=== PATIENT | female | born 2000 | race Caucasian/White ===

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

== ENCOUNTER 2018-09-28 19:08 | Emergency (ER) | payer BC, OTHER ==
[2018-09-28 19:38] VITALS: BP 128/77
[2018-09-28] MEDS ORDERED: Ondansetron 4 MG/2 ML SDV IVPUSH ONE (19:50)
[2018-09-28] MEDS ORDERED: Sodium Chloride 0.9% 2.5 ML Syringe FLUSH PRN (19:50)
[2018-09-28] MEDS ORDERED: Sodium Chloride 0.9% 1,000 ML IV ONE (19:50)
[2018-09-28] MEDS ORDERED: Sodium Chloride 0.9% 10 ML Syringe FLUSH PRN (19:50)
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
[2018-09-28 21:00] LABS: CHLORIDE,CL 105 mmol/L (98-107); SODIUM,NA 139 mmol/L (136-145)
--- NOTE | 2018-09-28 21:10 | CR ---
INDICATION: Anxiety TECHNIQUE: Chest 1 views COMPARISON: October 30, 2015 FINDINGS: Cardiovascular and mediastinum: Heart size and vasculature are normal in caliber and appearance. Lungs and pleural spaces: Lungs are clear. No sign of infiltrate or mass. No sign of pleural effusion. No pneumothorax. Bones and soft tissues: No significant findings. IMPRESSION: Normal chest. Dictated by Leonardo Álvarez MD @ Sep 28 2018 9:08PM Signed by Dr. Leonardo Álvarez @ Sep 28 2018 9:09PM
== END 2018-09-28 21:18 | disposition home or self-care (01) ==
LOC: MW.ED 19:08
DX: R11.2 Nausea with vomiting, unspecified (principal); Z77.098 Contact with and (suspected) exposure to other hazardous, chiefly nonmedicinal, chemicals; F31.9 Bipolar disorder, unspecified; F41.9 Anxiety disorder, unspecified; F43.10 Post-traumatic stress disorder, unspecified; Z87.891 Personal history of nicotine dependence; Z79.899 Other long term (current) drug therapy
CPT/HCPCS: 36415; 71045; 80053; 81001; 81025; 85025; 96361; 96374; 99283; J2405; J7040

== ENCOUNTER 2019-03-11 07:37 | Emergency (ER) | payer BC, OTHER ==
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
[2019-03-11 07:48] VITALS: BP 107/72; PULSE 81
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
== END 2019-03-11 08:25 | disposition home or self-care (01) ==
LOC: MW.ED 07:37
DX: S90.511A Abrasion, right ankle, initial encounter (principal); W22.8XXA Striking against or struck by other objects, initial encounter
CPT/HCPCS: 73610-26-RT; 73610-RT; 99282; 99283-25

== ENCOUNTER 2019-04-06 07:45 | Emergency (ER) | payer MEDICAID ==
[2019-04-06] MEDS ORDERED: Sodium Chloride 0.9% 1,000 ML IV ONE (08:12)
[2019-04-06] MEDS ORDERED: Ondansetron 4 MG/2 ML SDV IVPUSH ONE (08:12)
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
[2019-04-06 09:00] LABS: BLOOD UREA NITROGEN,BUN 11 mg/dL (7.0-18.0); CARBON DIOXIDE,CO2 28.6 mmol/L (21.0-32.0); CHLORIDE,CL 105 mmol/L (98-107); GLUCOSE RANDOM 89 mg/dL (74-106); POTASSIUM,K 3.6 mmol/L (3.5-5.1); SODIUM,NA 142 mmol/L (136-145)
[2019-04-06 09:11] VITALS: BP 120/79; PULSE 79
== END 2019-04-06 09:11 | disposition home or self-care (01) ==
LOC: MW.ED 07:45
DX: R11.2 Nausea with vomiting, unspecified (principal); T42.6X5A Adverse effect of other antiepileptic and sedative-hypnotic drugs, initial encounter; F32.9 Major depressive disorder, single episode, unspecified; R31.9 Hematuria, unspecified; Z91.14 Patient's other noncompliance with medication regimen; Z91.048 Other nonmedicinal substance allergy status
CPT/HCPCS: 36415; 80053; 81001; 81025; 85025; 96361; 96374; 99284; J2405; J7030

== ENCOUNTER 2019-06-11 20:25 | Emergency (ER) | payer BC, MEDICAID ==
[2019-06-11 21:58] VITALS: BP 129/94; PULSE 112
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
== END 2019-06-11 22:19 | disposition home or self-care (01) ==
LOC: MW.ED 20:25
DX: R40.1 Stupor (principal); Z91.09 Other allergy status, other than to drugs and biological substances; Z79.899 Other long term (current) drug therapy
CPT/HCPCS: 93005; 99284-25

== ENCOUNTER 2022-09-22 22:19 | Emergency (ER) | payer BC, MEDICAID ==
[2022-09-23 02:16] VITALS: BP 120/74; PULSE 91
== END 2022-09-22 23:30 | disposition home or self-care (01) ==
LOC: MW.ED 22:19
DX: R45.851 Suicidal ideations (principal); Z91.048 Other nonmedicinal substance allergy status
CPT/HCPCS: 99284

== ENCOUNTER 2022-11-01 08:24 | Emergency (ER) | payer BC ==
[2022-11-01] MEDS ORDERED: Sodium Chloride 0.9% 2.5 ML Syringe FLUSH PRN (08:51)
[2022-11-01] MEDS ORDERED: Sodium Chloride 0.9% 10 ML Syringe FLUSH PRN (08:51)
[2022-11-01 09:09] LABS: BASOPHILS PERCENT AUTO 0.4 % (0.0-1.5); EOSINOPHILS ABSOLUTE AUTO 0.1 K/uL (0.0-0.7); EOSINOPHILS PERCENT AUTO 0.5 % (0.0-7.0); HEMATOCRIT 44.1 % (36.0-46.0); HEMOGLOBIN 14.5 g/dL (12.0-16.0); LYMPHOCYTES ABSOLUTE AUTO 2.2 K/uL (0.6-2.4); LYMPHOCYTES PERCENT AUTO 19.4 % (16.0-40.0); MEAN CORPUSCULAR HGB CONC 32.9 g/dL (31.0-37.0); MEAN CORPUSCULAR VOLUME 85.1 fL (80.0-98.0); NEUTROPHILS ABSOLUTE AUTO 7.8 K/uL (1.4-5.7); NEUTROPHILS PERCENT AUTO 70.7 % (48.0-80.0); PLATELET COUNT,PLT 445 K/uL (150-400); RED BLOOD CELL COUNT 5.18 M/uL (4.30-5.90); WHITE BLOOD CELL COUNT,WBC 11.06 K/uL (4.0-11.0)
[2022-11-01 09:38] LABS: ALANINE AMINOTRANSFERASE,ALT 13 IU/L (14-63); ALBUMIN 3.5 g/dL (3.4-5.0); ALKALINE PHOSPHATASE 75 U/L (46-116); ASPARTATE AMNIOTRANSFERASE,AST 15 IU/L (15-37); BILIRUBIN TOTAL 0.5 mg/dL (0.2-1.0); BLOOD UREA NITROGEN,BUN 11 mg/dL (7.0-18.0); CALCIUM 8.9 mg/dL (8.5-10.1); CARBON DIOXIDE,CO2 25.5 mmol/L (21.0-32.0); CHLORIDE,CL 103 mmol/L (98-107); CREATININE 0.7 mg/dL (0.6-1.0); EST CRCL DRUG DOSING (CG) 120.51 mL/min; GLUCOSE RANDOM 126 mg/dL (74-106); LIPASE 85 U/L (73-393); POTASSIUM,K 3.4 mmol/L (3.5-5.1); PROTEIN TOTAL,TP 6.9 g/dL (6.4-8.2); SODIUM,NA 138 mmol/L (136-145)
[2022-11-01 09:43] LABS: ESTIMATED GFR 124 mL/min (>60)
[2022-11-01 10:19] VITALS: BP 128/81; PULSE 87
== END 2022-11-01 10:18 | disposition home or self-care (01) ==
LOC: MW.ED 08:24
DX: R07.89 Other chest pain (principal); Z79.899 Other long term (current) drug therapy; Z91.048 Other nonmedicinal substance allergy status
CPT/HCPCS: 36415; 71045; 71045-26; 80053; 83690; 84484; 84703; 85025; 85379; 93005; 93010; 99283; 99285

== ENCOUNTER 2022-11-11 06:35 | Emergency (ER) | payer BC ==
[2022-11-11] MEDS ORDERED: Lactated Ringers 1,000 ML IV SCH ×2 (06:45→09:45)
[2022-11-11] MEDS ORDERED: Ondansetron 4 MG/2 ML SDV IVPUSH ONE (06:45)
[2022-11-11 07:36] LABS: BASOPHILS PERCENT AUTO 0.4 % (0.0-1.5); EOSINOPHILS ABSOLUTE AUTO 0.2 K/uL (0.0-0.7); EOSINOPHILS PERCENT AUTO 2.9 % (0.0-7.0); HEMOGLOBIN 13.8 g/dL (12.0-16.0); LYMPHOCYTES ABSOLUTE AUTO 2.5 K/uL (0.6-2.4); LYMPHOCYTES PERCENT AUTO 30.7 % (16.0-40.0); MEAN CORPUSCULAR HEMOGLOBIN 27.5 pg (27.0-32.0); MEAN CORPUSCULAR HGB CONC 32.1 g/dL (31.0-37.0); MEAN CORPUSCULAR VOLUME 85.8 fL (80.0-98.0); MONOCYTES ABSOLUTE AUTO 0.8 K/uL (0.0-0.8); MONOCYTES PERCENT AUTO 9.7 % (0.0-15.0); NEUTROPHILS ABSOLUTE AUTO 4.7 K/uL (1.4-5.7); NEUTROPHILS PERCENT AUTO 56.3 % (48.0-80.0); NRBC ABSOLUTE 0 K/uL; PLATELET COUNT,PLT 364 K/uL (150-400); RED BLOOD CELL COUNT 5.01 M/uL (4.30-5.90); WHITE BLOOD CELL COUNT,WBC 8.27 K/uL (4.0-11.0)
[2022-11-11 07:39] LABS: APPEARANCE,URINE CLEAR; BILIRUBIN,URINE NEGATIVE (NEGATIVE); COLOR,URINE YELLOW; GLUCOSE,URINE NEGATIVE (NEGATIVE); KETONES,URINE NEGATIVE (NEGATIVE); LEUKOCYTE ESTERASE,URINE NEGATIVE (NEGATIVE); NITRITE,URINE NEGATIVE (NEGATIVE); OCCULT BLOOD,URINE SMALL (NEGATIVE); PH,URINE 6.5 (5.0-8.0); PROTEIN,URINE NEGATIVE (NEGATIVE); UROBILINOGEN,URINE 0.2 EU/dL (<2.0)
[2022-11-11 07:46] LABS: AMPHETAMINES SCREEN, URINE NEGATIVE (CUTOFF=500); BARBITURATE SCREEN,URINE NEGATIVE (CUTOFF=200); BENZODIAZEPINES SCREEN,URINE NEGATIVE (CUTOFF=150); BUPRENORPHINE SCREEN,URINE NEGATIVE (CUTOFF=10); METHADONE SCREEN, URINE NEGATIVE (CUTOFF=200); METHAMPHETAMINES SCREEN, URINE NEGATIVE (CUTOFF=500); OXYCODONE SCREEN,URINE PRESUMPTIVE POSITIVE (CUT0FF=100); PCP SCREEN,URINE NEGATIVE (CUTOFF=25); PROPOXYPHENE SCREEN,URINE NEGATIVE (CUTOFF=300); THC SCREEN,URINE 20 NG/ML NEGATIVE (CUTOFF=50)
[2022-11-11 07:59] LABS: INR 0.98 (0.86-1.11)
[2022-11-11 08:06] LABS: EPITHELIAL CELLS,URINE MODERATE (NONE-FEW); RBC,URINE 0-2 (0-2/HPF)
[2022-11-11 08:07] LABS: BACTERIA,URINE RARE (NEGATIVE)
[2022-11-11 08:14] LABS: A/G RATIO 1.1 (0.9-1.6); ACETAMINOPHEN 5.3 ug/mL; ALBUMIN 3.6 g/dL (3.4-5.0); BILIRUBIN TOTAL 0.2 mg/dL (0.2-1.0); CALCIUM 8.4 mg/dL (8.5-10.1); CARBON DIOXIDE,CO2 26.7 mmol/L (21.0-32.0); CREATININE 0.7 mg/dL (0.6-1.0); EST CRCL DRUG DOSING (CG) 119.8 mL/min; PROTEIN TOTAL,TP 6.9 g/dL (6.4-8.2); SALICYLATE 0.8 mg/dL (0.0-20.0); TSH ULTRASENSITIVE 2.77 uIU/mL (0.36-3.74)
[2022-11-11] MEDS ORDERED: Meclizine 25 MG Tab PO ONE (09:40)
[2022-11-11] MEDS ORDERED: LORazepam 2 MG/ML SDV IVPUSH ONE (11:31)
[2022-11-11 14:59] VITALS: BP 103/61; PULSE 87
== END 2022-11-11 13:13 | disposition home or self-care (01) ==
LOC: MW.ED 06:35
DX: T40.2X1A Poisoning by other opioids, accidental (unintentional), initial encounter (principal); R11.2 Nausea with vomiting, unspecified; R42 Dizziness and giddiness; Z91.048 Other nonmedicinal substance allergy status; Z79.899 Other long term (current) drug therapy
CPT/HCPCS: 36415; 70551; 80053; 80143; 80179; 80305; 80307; 81001; 83690; 83735; 84443; 84703; 85025; 85610; 93005; 96361; 96374; 96375; 99284; A9270; J2060; J2405; J7120; 93010

== ENCOUNTER 2022-11-13 00:20 | Emergency (ER) | payer BC ==
[2022-11-13 00:49] LABS: BASOPHILS ABSOLUTE AUTO 0.1 K/uL (0.0-0.1); BASOPHILS PERCENT AUTO 0.5 % (0.0-1.5); EOSINOPHILS ABSOLUTE AUTO 0.4 K/uL (0.0-0.7); HEMATOCRIT 41.9 % (36.0-46.0); HEMOGLOBIN 13.7 g/dL (12.0-16.0); LYMPHOCYTES ABSOLUTE AUTO 3.4 K/uL (0.6-2.4); LYMPHOCYTES PERCENT AUTO 32.8 % (16.0-40.0); MEAN CORPUSCULAR HEMOGLOBIN 27.6 pg (27.0-32.0); MEAN CORPUSCULAR HGB CONC 32.7 g/dL (31.0-37.0); MEAN CORPUSCULAR VOLUME 84.5 fL (80.0-98.0); MONOCYTES ABSOLUTE AUTO 0.8 K/uL (0.0-0.8); MONOCYTES PERCENT AUTO 7.4 % (0.0-15.0); NEUTROPHILS ABSOLUTE AUTO 5.7 K/uL (1.4-5.7); NEUTROPHILS PERCENT AUTO 55.3 % (48.0-80.0); NRBC ABSOLUTE 0 K/uL; PLATELET COUNT,PLT 371 K/uL (150-400); RED BLOOD CELL COUNT 4.96 M/uL (4.30-5.90); WHITE BLOOD CELL COUNT,WBC 10.29 K/uL (4.0-11.0)
[2022-11-13] MEDS ORDERED: Midazolam 5 MG/ML SDV IVPUSH STA (01:00)
[2022-11-13 01:12] LABS: INR 0.97 (0.86-1.11)
[2022-11-13 01:18] LABS: A/G RATIO 1.1 (0.9-1.6); ACETAMINOPHEN <2.0 ug/mL; ALANINE AMINOTRANSFERASE,ALT 18 IU/L (14-63); ALBUMIN 3.7 g/dL (3.4-5.0); ALKALINE PHOSPHATASE 60 U/L (46-116); ASPARTATE AMNIOTRANSFERASE,AST 20 IU/L (15-37); BILIRUBIN TOTAL 0.2 mg/dL (0.2-1.0); BLOOD UREA NITROGEN,BUN 8 mg/dL (7.0-18.0); CALCIUM 8.7 mg/dL (8.5-10.1); CARBON DIOXIDE,CO2 24.1 mmol/L (21.0-32.0); CHLORIDE,CL 107 mmol/L (98-107); CREATININE 0.6 mg/dL (0.6-1.0); ETHANOL BLOOD MEDICAL 196 mg/dL; GLUCOSE RANDOM 80 mg/dL (74-106); LIPASE 76 U/L (73-393); MAGNESIUM 2.1 mg/dL (1.8-2.4); POTASSIUM,K 4.1 mmol/L (3.5-5.1); PROTEIN TOTAL,TP 7.1 g/dL (6.4-8.2); SALICYLATE 1.1 mg/dL (0.0-20.0); SODIUM,NA 143 mmol/L (136-145); TSH ULTRASENSITIVE 1.08 uIU/mL (0.36-3.74)
[2022-11-13] MEDS ORDERED: Sodium Chloride 0.9% 1,000 ML IV ONE (01:19)
[2022-11-13 01:31] LABS: ESTIMATED GFR 128 mL/min (>60)
[2022-11-13 01:43] LABS: AMPHETAMINES SCREEN, URINE NEGATIVE (CUTOFF=500); BARBITURATE SCREEN,URINE NEGATIVE (CUTOFF=200); BENZODIAZEPINES SCREEN,URINE NEGATIVE (CUTOFF=150); BUPRENORPHINE SCREEN,URINE NEGATIVE (CUTOFF=10); METHADONE SCREEN, URINE NEGATIVE (CUTOFF=200); METHAMPHETAMINES SCREEN, URINE NEGATIVE (CUTOFF=500); OXYCODONE SCREEN,URINE PRESUMPTIVE POSITIVE (CUT0FF=100); PCP SCREEN,URINE NEGATIVE (CUTOFF=25); PROPOXYPHENE SCREEN,URINE NEGATIVE (CUTOFF=300); THC SCREEN,URINE 20 NG/ML NEGATIVE (CUTOFF=50)
[2022-11-13 01:44] LABS: APPEARANCE,URINE CLEAR; BILIRUBIN,URINE NEGATIVE (NEGATIVE); COLOR,URINE YELLOW; GLUCOSE,URINE NEGATIVE (NEGATIVE); KETONES,URINE NEGATIVE (NEGATIVE); LEUKOCYTE ESTERASE,URINE NEGATIVE (NEGATIVE); NITRITE,URINE NEGATIVE (NEGATIVE); OCCULT BLOOD,URINE NEGATIVE (NEGATIVE); PH,URINE 6.5 (5.0-8.0); PROTEIN,URINE NEGATIVE (NEGATIVE); UROBILINOGEN,URINE 0.2 EU/dL (<2.0)
[2022-11-13] MEDS ORDERED: Ketorolac 30 MG/ML SDV IVPUSH ONE (06:23)
[2022-11-13] MEDS ORDERED: Ondansetron 4 MG Tab.DIS PO ONE (12:13)
[2022-11-14] MEDS ORDERED: Ibuprofen 600 MG Tab PO ONE (00:26)
[2022-11-14 06:28] VITALS: BP 132/74; PULSE 75
== END 2022-11-14 06:01 | disposition left against medical advice (07) ==
LOC: MW.ED 00:20
DX: T40.2X2A Poisoning by other opioids, intentional self-harm, initial encounter (principal); F19.10 Other psychoactive substance abuse, uncomplicated; Z91.048 Other nonmedicinal substance allergy status; Z91.09 Other allergy status, other than to drugs and biological substances; Z20.822 Contact with and (suspected) exposure to COVID-19
CPT/HCPCS: 36415; 80053; 80143; 80179; 80305; 80307; 81003; 83690; 83735; 84443; 84703; 85025; 85610; 87635; 93005; 96374; 96375; 99285; A9270; J1885; J2250; J7030; 93010; U0002

== ENCOUNTER 2022-12-02 06:53 | Emergency (ER) | payer BC ==
[2022-12-02] MEDS ORDERED: Ondansetron 4 MG/2 ML SDV IVPUSH ONE (07:18)
[2022-12-02] MEDS ORDERED: Lactated Ringers 1,000 ML IV SCH (07:30)
[2022-12-02 07:42] LABS: BASOPHILS PERCENT AUTO 0.5 % (0.0-1.5); EOSINOPHILS ABSOLUTE AUTO 0.2 K/uL (0.0-0.7); EOSINOPHILS PERCENT AUTO 2.2 % (0.0-7.0); HEMATOCRIT 41.1 % (36.0-46.0); HEMOGLOBIN 13.3 g/dL (12.0-16.0); LYMPHOCYTES ABSOLUTE AUTO 1.6 K/uL (0.6-2.4); LYMPHOCYTES PERCENT AUTO 22.3 % (16.0-40.0); MEAN CORPUSCULAR HEMOGLOBIN 27.4 pg (27.0-32.0); MEAN CORPUSCULAR HGB CONC 32.4 g/dL (31.0-37.0); MEAN CORPUSCULAR VOLUME 84.6 fL (80.0-98.0); MONOCYTES ABSOLUTE AUTO 0.7 K/uL (0.0-0.8); MONOCYTES PERCENT AUTO 9.4 % (0.0-15.0); NEUTROPHILS ABSOLUTE AUTO 4.8 K/uL (1.4-5.7); NEUTROPHILS PERCENT AUTO 65.6 % (48.0-80.0); NRBC ABSOLUTE 0 K/uL; PLATELET COUNT,PLT 392 K/uL (150-400); RED BLOOD CELL COUNT 4.86 M/uL (4.30-5.90); WHITE BLOOD CELL COUNT,WBC 7.35 K/uL (4.0-11.0)
[2022-12-02 08:12] LABS: APPEARANCE,URINE CLEAR; BILIRUBIN,URINE NEGATIVE (NEGATIVE); COLOR,URINE YELLOW; GLUCOSE,URINE NEGATIVE (NEGATIVE); KETONES,URINE NEGATIVE (NEGATIVE); LEUKOCYTE ESTERASE,URINE NEGATIVE (NEGATIVE); NITRITE,URINE NEGATIVE (NEGATIVE); OCCULT BLOOD,URINE NEGATIVE (NEGATIVE); PROTEIN,URINE NEGATIVE (NEGATIVE); UROBILINOGEN,URINE 0.2 EU/dL (<2.0)
[2022-12-02 08:48] LABS: A/G RATIO 1.2 (0.9-1.6); ALBUMIN 3.8 g/dL (3.4-5.0); BILIRUBIN TOTAL 0.2 mg/dL (0.2-1.0); CALCIUM 8.7 mg/dL (8.5-10.1); CARBON DIOXIDE,CO2 25.2 mmol/L (21.0-32.0); CREATININE 0.6 mg/dL (0.6-1.0); EST CRCL DRUG DOSING (CG) 139.76 mL/min; POTASSIUM,K 3.9 mmol/L (3.5-5.1); PROTEIN TOTAL,TP 7.1 g/dL (6.4-8.2)
[2022-12-02 09:28] VITALS: BP 97/53; PULSE 78
== END 2022-12-02 09:27 | disposition home or self-care (01) ==
LOC: MW.ED 06:53
DX: O21.9 Vomiting of pregnancy, unspecified (principal); Z91.048 Other nonmedicinal substance allergy status; Z3A.01 Less than 8 weeks gestation of pregnancy
CPT/HCPCS: 36415; 80053; 81003; 83690; 85025; 96361; 96374; 99284; J2405; J7120

== ENCOUNTER 2022-12-07 23:02 | Emergency (ER) | payer BC ==
[2022-12-07] MEDS ORDERED: Sodium Chloride 0.9% 1,000 ML IV ONE (23:51)
[2022-12-08 00:21] LABS: BASOPHILS PERCENT AUTO 0.2 % (0.0-1.5); EOSINOPHILS ABSOLUTE AUTO 0.2 K/uL (0.0-0.7); EOSINOPHILS PERCENT AUTO 1.7 % (0.0-7.0); HEMATOCRIT 37.9 % (36.0-46.0); HEMOGLOBIN 12.4 g/dL (12.0-16.0); LYMPHOCYTES ABSOLUTE AUTO 2.5 K/uL (0.6-2.4); LYMPHOCYTES PERCENT AUTO 18.9 % (16.0-40.0); MEAN CORPUSCULAR HEMOGLOBIN 27.6 pg (27.0-32.0); MEAN CORPUSCULAR HGB CONC 32.7 g/dL (31.0-37.0); MEAN CORPUSCULAR VOLUME 84.4 fL (80.0-98.0); MONOCYTES ABSOLUTE AUTO 0.9 K/uL (0.0-0.8); MONOCYTES PERCENT AUTO 6.7 % (0.0-15.0); NEUTROPHILS ABSOLUTE AUTO 9.6 K/uL (1.4-5.7); NEUTROPHILS PERCENT AUTO 72.5 % (48.0-80.0); NRBC ABSOLUTE 0 K/uL; PLATELET COUNT,PLT 363 K/uL (150-400); RED BLOOD CELL COUNT 4.49 M/uL (4.30-5.90); WHITE BLOOD CELL COUNT,WBC 13.27 K/uL (4.0-11.0)
[2022-12-08 00:38] LABS: HEMOGLOBIN A1C 5.3 %
[2022-12-08 01:05] LABS: A/G RATIO 1.1 (0.9-1.6); ALBUMIN 3.5 g/dL (3.4-5.0); BILIRUBIN TOTAL 0.2 mg/dL (0.2-1.0); CALCIUM 8.5 mg/dL (8.5-10.1); CARBON DIOXIDE,CO2 24.7 mmol/L (21.0-32.0); CREATININE 0.5 mg/dL (0.6-1.0); EST CRCL DRUG DOSING (CG) 166.47 mL/min; MAGNESIUM 1.8 mg/dL (1.8-2.4); POTASSIUM,K 3.5 mmol/L (3.5-5.1); PROTEIN TOTAL,TP 6.7 g/dL (6.4-8.2)
[2022-12-08 02:16] VITALS: BP 110/78; PULSE 78
== END 2022-12-08 01:20 | disposition home or self-care (01) ==
LOC: MW.ED 23:02
DX: O24.911 Unspecified diabetes mellitus in pregnancy, first trimester (principal); E11.649 Type 2 diabetes mellitus with hypoglycemia without coma; O99.891 Other specified diseases and conditions complicating pregnancy; R00.2 Palpitations; Z91.048 Other nonmedicinal substance allergy status; Z3A.01 Less than 8 weeks gestation of pregnancy
CPT/HCPCS: 36415; 80053; 82947; 83036; 83735; 84702; 85025; 93005; 93010; 99283; 99285

== ENCOUNTER 2022-12-26 20:26 | Emergency (ER) | payer BC ==
[2022-12-26 22:10] LABS: BASOPHILS PERCENT AUTO 0.4 % (0.0-1.5); EOSINOPHILS ABSOLUTE AUTO 0.3 K/uL (0.0-0.7); EOSINOPHILS PERCENT AUTO 2.7 % (0.0-7.0); HEMATOCRIT 40.8 % (36.0-46.0); HEMOGLOBIN 13.6 g/dL (12.0-16.0); LYMPHOCYTES ABSOLUTE AUTO 2.3 K/uL (0.6-2.4); LYMPHOCYTES PERCENT AUTO 23.6 % (16.0-40.0); MEAN CORPUSCULAR HEMOGLOBIN 28.1 pg (27.0-32.0); MEAN CORPUSCULAR HGB CONC 33.3 g/dL (31.0-37.0); MEAN CORPUSCULAR VOLUME 84.3 fL (80.0-98.0); MONOCYTES PERCENT AUTO 9.9 % (0.0-15.0); NEUTROPHILS ABSOLUTE AUTO 6.2 K/uL (1.4-5.7); NEUTROPHILS PERCENT AUTO 63.4 % (48.0-80.0); NRBC ABSOLUTE 0 K/uL; PLATELET COUNT,PLT 407 K/uL (150-400); RED BLOOD CELL COUNT 4.84 M/uL (4.30-5.90); WHITE BLOOD CELL COUNT,WBC 9.82 K/uL (4.0-11.0)
[2022-12-26 22:54] LABS: A/G RATIO 1.1 (0.9-1.6); ALBUMIN 3.8 g/dL (3.4-5.0); BILIRUBIN TOTAL 0.3 mg/dL (0.2-1.0); CALCIUM 9.3 mg/dL (8.5-10.1); CARBON DIOXIDE,CO2 25.6 mmol/L (21.0-32.0); CREATININE 0.6 mg/dL (0.6-1.0); EST CRCL DRUG DOSING (CG) 140.37 mL/min; POTASSIUM,K 4.3 mmol/L (3.5-5.1); PROTEIN TOTAL,TP 7.4 g/dL (6.4-8.2)
[2022-12-26 23:17] LABS: BILIRUBIN,URINE NEGATIVE (NEGATIVE); COLOR,URINE YELLOW; GLUCOSE,URINE NEGATIVE (NEGATIVE); KETONES,URINE NEGATIVE (NEGATIVE); LEUKOCYTE ESTERASE,URINE NEGATIVE (NEGATIVE); NITRITE,URINE NEGATIVE (NEGATIVE); OCCULT BLOOD,URINE NEGATIVE (NEGATIVE); PROTEIN,URINE NEGATIVE (NEGATIVE)
[2022-12-26 23:18] LABS: APPEARANCE,URINE SLT CLOUDY; BACTERIA,URINE 2+ (NEGATIVE); EPITHELIAL CELLS,URINE FEW (NONE-FEW); MUCUS,URINE LIGHT (NONE-MOD); RBC,URINE 0-3 (0-2/HPF)
[2022-12-26 23:50] VITALS: BP 110/70; PULSE 78
== END 2022-12-26 23:48 | disposition home or self-care (01) ==
LOC: MW.ED 20:26
DX: O02.1 Missed abortion (principal); Z91.09 Other allergy status, other than to drugs and biological substances; Z91.048 Other nonmedicinal substance allergy status
CPT/HCPCS: 36415; 76817; 76817-26; 80053; 81001; 84702; 85025; 86900; 86901; 99283; 99284

== ENCOUNTER 2023-01-03 22:15 | Emergency (ER) | payer OTHER, BC ==
[2023-01-03 22:47] LABS: APPEARANCE,URINE SLT CLOUDY; BILIRUBIN,URINE NEGATIVE (NEGATIVE); COLOR,URINE YELLOW; GLUCOSE,URINE NEGATIVE (NEGATIVE); KETONES,URINE NEGATIVE (NEGATIVE); LEUKOCYTE ESTERASE,URINE NEGATIVE (NEGATIVE); NITRITE,URINE NEGATIVE (NEGATIVE); OCCULT BLOOD,URINE NEGATIVE (NEGATIVE); PH,URINE 7.5 (5.0-8.0); PROTEIN,URINE NEGATIVE (NEGATIVE)
[2023-01-03 23:36] VITALS: BP 120/87; PULSE 91
== END 2023-01-03 23:56 | disposition home or self-care (01) ==
LOC: MW.ED 22:15
DX: S06.0XAA Concussion with loss of consciousness status unknown, initial encounter (principal); Z91.048 Other nonmedicinal substance allergy status; Z91.09 Other allergy status, other than to drugs and biological substances; V89.2XXA Person injured in unspecified motor-vehicle accident, traffic, initial encounter; Y92.410 Unspecified street and highway as the place of occurrence of the external cause
CPT/HCPCS: 70450; 70450-26; 81003; 81025; 99283; 99284

== ENCOUNTER 2023-01-08 21:20 | Emergency (ER) | payer BC ==
[2023-01-08 21:41] VITALS: BP 136/95; PULSE 85
[2023-01-08 21:45] LABS: BASOPHILS PERCENT AUTO 0.3 % (0.0-1.5); EOSINOPHILS ABSOLUTE AUTO 0.4 K/uL (0.0-0.7); EOSINOPHILS PERCENT AUTO 5.1 % (0.0-7.0); HEMATOCRIT 38.4 % (36.0-46.0); HEMOGLOBIN 12.7 g/dL (12.0-16.0); LYMPHOCYTES ABSOLUTE AUTO 1.9 K/uL (0.6-2.4); LYMPHOCYTES PERCENT AUTO 27.1 % (16.0-40.0); MEAN CORPUSCULAR HEMOGLOBIN 27.8 pg (27.0-32.0); MEAN CORPUSCULAR HGB CONC 33.1 g/dL (31.0-37.0); MONOCYTES ABSOLUTE AUTO 0.9 K/uL (0.0-0.8); MONOCYTES PERCENT AUTO 12.4 % (0.0-15.0); NEUTROPHILS ABSOLUTE AUTO 3.9 K/uL (1.4-5.7); NEUTROPHILS PERCENT AUTO 55.1 % (48.0-80.0); NRBC ABSOLUTE 0 K/uL; PLATELET COUNT,PLT 374 K/uL (150-400); RED BLOOD CELL COUNT 4.57 M/uL (4.30-5.90); WHITE BLOOD CELL COUNT,WBC 7.11 K/uL (4.0-11.0)
[2023-01-08 22:01] LABS: APPEARANCE,URINE CLEAR; BILIRUBIN,URINE NEGATIVE (NEGATIVE); COLOR,URINE YELLOW; GLUCOSE,URINE NEGATIVE (NEGATIVE); KETONES,URINE NEGATIVE (NEGATIVE); LEUKOCYTE ESTERASE,URINE NEGATIVE (NEGATIVE); NITRITE,URINE NEGATIVE (NEGATIVE); OCCULT BLOOD,URINE NEGATIVE (NEGATIVE); PROTEIN,URINE NEGATIVE (NEGATIVE); UROBILINOGEN,URINE 0.2 EU/dL (<2.0)
[2023-01-08 22:40] LABS: A/G RATIO 1.3 (0.9-1.6); ALANINE AMINOTRANSFERASE,ALT 14 IU/L (14-63); ALKALINE PHOSPHATASE 47 U/L (46-116); ASPARTATE AMNIOTRANSFERASE,AST 14 IU/L (15-37); BILIRUBIN TOTAL 0.3 mg/dL (0.2-1.0); BLOOD UREA NITROGEN,BUN 7 mg/dL (7.0-18.0); CALCIUM 8.8 mg/dL (8.5-10.1); CARBON DIOXIDE,CO2 26.8 mmol/L (21.0-32.0); CHLORIDE,CL 101 mmol/L (98-107); CREATININE 0.6 mg/dL (0.6-1.0); ESTIMATED GFR 128 mL/min (>60); GLUCOSE RANDOM 81 mg/dL (74-106); POTASSIUM,K 3.7 mmol/L (3.5-5.1); PROTEIN TOTAL,TP 7.2 g/dL (6.4-8.2); SODIUM,NA 137 mmol/L (136-145)
== END 2023-01-08 23:05 | disposition home or self-care (01) ==
LOC: MW.ED 21:20
DX: O03.9 Complete or unspecified spontaneous abortion without complication (principal); Z91.048 Other nonmedicinal substance allergy status
CPT/HCPCS: 36415; 80053; 81003; 84702; 85025; 99283; 99284

== ENCOUNTER 2023-01-18 20:11 | Emergency (ER) | payer BC ==
[2023-01-18] MEDS ORDERED: Sodium Chloride 0.9% 1,000 ML IV ONE (20:26)
[2023-01-18 20:42] LABS: BASOPHILS PERCENT AUTO 0.2 % (0.0-1.5); EOSINOPHILS ABSOLUTE AUTO 0.3 K/uL (0.0-0.7); HEMATOCRIT 36.8 % (36.0-46.0); HEMOGLOBIN 12.4 g/dL (12.0-16.0); LYMPHOCYTES ABSOLUTE AUTO 2.8 K/uL (0.6-2.4); LYMPHOCYTES PERCENT AUTO 26.6 % (16.0-40.0); MEAN CORPUSCULAR HEMOGLOBIN 28.1 pg (27.0-32.0); MEAN CORPUSCULAR HGB CONC 33.7 g/dL (31.0-37.0); MEAN CORPUSCULAR VOLUME 83.3 fL (80.0-98.0); MONOCYTES ABSOLUTE AUTO 0.9 K/uL (0.0-0.8); MONOCYTES PERCENT AUTO 8.3 % (0.0-15.0); NEUTROPHILS ABSOLUTE AUTO 6.4 K/uL (1.4-5.7); NEUTROPHILS PERCENT AUTO 61.9 % (48.0-80.0); NRBC ABSOLUTE 0 K/uL; PLATELET COUNT,PLT 388 K/uL (150-400); RED BLOOD CELL COUNT 4.42 M/uL (4.30-5.90); WHITE BLOOD CELL COUNT,WBC 10.36 K/uL (4.0-11.0)
[2023-01-18 21:16] LABS: ALBUMIN 3.7 g/dL (3.4-5.0); BILIRUBIN TOTAL 0.2 mg/dL (0.2-1.0); CALCIUM 8.8 mg/dL (8.5-10.1); CARBON DIOXIDE,CO2 25.8 mmol/L (21.0-32.0); CREATININE 0.6 mg/dL (0.6-1.0); EST CRCL DRUG DOSING (CG) 134.59 mL/min; POTASSIUM,K 3.3 mmol/L (3.5-5.1); PROTEIN TOTAL,TP 7.4 g/dL (6.4-8.2)
[2023-01-18 21:34] LABS: LACTIC ACID 0.8 mmol/L (0.4-2.0)
[2023-01-18 21:48] LABS: APPEARANCE,URINE CLEAR; BILIRUBIN,URINE NEGATIVE (NEGATIVE); COLOR,URINE YELLOW; GLUCOSE,URINE NEGATIVE (NEGATIVE); KETONES,URINE NEGATIVE (NEGATIVE); LEUKOCYTE ESTERASE,URINE NEGATIVE (NEGATIVE); NITRITE,URINE NEGATIVE (NEGATIVE); OCCULT BLOOD,URINE LARGE (NEGATIVE); PROTEIN,URINE NEGATIVE (NEGATIVE); UROBILINOGEN,URINE 0.2 EU/dL (<2.0)
[2023-01-18 22:20] LABS: WBC,URINE 0-1 (0-5/HPF)
[2023-01-18 22:21] LABS: BACTERIA,URINE RARE (NEGATIVE); EPITHELIAL CELLS,URINE RARE (NONE-FEW)
[2023-01-18 22:30] VITALS: BP 131/90; PULSE 89
== END 2023-01-18 22:30 | disposition home or self-care (01) ==
LOC: MW.ED 20:11
DX: O03.9 Complete or unspecified spontaneous abortion without complication (principal); Z91.048 Other nonmedicinal substance allergy status
CPT/HCPCS: 36415; 76817; 80053; 81001; 83605; 84702; 85025; 87040; 96360; 99284; J7030; 99283

== ENCOUNTER 2023-02-15 00:04 | Emergency (ER) | payer BC ==
[2023-02-15] MEDS ORDERED: Ketorolac 30 MG/ML SDV IVPUSH ONE (00:14)
[2023-02-15] MEDS ORDERED: Sodium Chloride 0.9% 1,000 ML IV ONE (00:14)
[2023-02-15] MEDS ORDERED: Morphine 4 MG/ML Syringe IVPUSH ONE (00:14)
[2023-02-15] MEDS ORDERED: Ondansetron 4 MG/2 ML SDV IVPUSH ONE (00:14)
[2023-02-15 00:56] LABS: BASOPHILS ABSOLUTE AUTO 0.04 K/uL (0.00-0.20); BASOPHILS PERCENT AUTO 0.4 % (0.0-1.0); EOSINOPHILS ABSOLUTE AUTO 0.33 K/uL (0.00-0.45); EOSINOPHILS PERCENT AUTO 2.9 % (0.0-6.0); HEMATOCRIT 39.1 % (37.0-47.0); HEMOGLOBIN 13.2 g/dL (12.0-16.0); IMMATURE GRAN ABSOLUTE AUTO 0.04 K/uL (0.00-0.05); IMMATURE GRAN PERCENT AUTO 0.4 % (0.0-0.4); LYMPHOCYTES ABSOLUTE AUTO 3.38 K/uL (1.00-4.80); LYMPHOCYTES PERCENT AUTO 29.9 % (24.0-44.0); MEAN CORPUSCULAR HEMOGLOBIN 28.3 pg (28.0-32.0); MEAN CORPUSCULAR HGB CONC 33.8 g/dL (32.0-36.0); MEAN CORPUSCULAR VOLUME 83.9 fL (83.0-99.0); MONOCYTES ABSOLUTE AUTO 0.98 K/uL (0.00-0.80); MONOCYTES PERCENT AUTO 8.7 % (0.0-8.0); NEUTROPHILS ABSOLUTE AUTO 6.55 K/uL (1.80-7.70); NEUTROPHILS PERCENT AUTO 57.7 % (41.0-71.0); PLATELET COUNT,PLT 379 K/uL (150-400); RED BLOOD CELL COUNT 4.66 M/uL (4.10-5.30); WHITE BLOOD CELL COUNT,WBC 11.32 K/uL (3.9-11.3)
[2023-02-15 01:00] LABS: A/G RATIO 1.2 (0.9-1.6); ALBUMIN 4.4 g/dL (3.4-5.0); BILIRUBIN TOTAL 0.5 mg/dL (0.2-1.0); CALCIUM 8.9 mg/dL (8.5-10.1); CARBON DIOXIDE,CO2 24.4 mmol/L (21.0-32.0); CREATININE 0.7 mg/dL (0.6-1.0); EST CRCL DRUG DOSING (CG) 108.26 mL/min; POTASSIUM,K 4.1 mmol/L (3.5-5.1)
[2023-02-15] MEDS ORDERED: Iopamidol 755 MG/ML 500 ML Multipack Bottle IVPUSH ONE (01:19)
[2023-02-15 02:15] VITALS: BP 123/90; PULSE 86
== END 2023-02-15 02:06 | disposition home or self-care (01) ==
LOC: MW.ED 00:04
DX: N94.10 Unspecified dyspareunia (principal); Z91.048 Other nonmedicinal substance allergy status
CPT/HCPCS: 36415; 74177; 80053; 80307; 84703; 85025; 96361; 96374; 96375; 99284; J1885; J2270; J2405; J3360; J7030; Q9967

== ENCOUNTER 2023-02-16 16:24 | Emergency (ER) | payer BC ==
[2023-02-16 17:56] VITALS: BP 139/89; PULSE 87
== END 2023-02-16 19:05 | disposition home or self-care (01) ==
LOC: MW.ED 16:24
DX: Z13.9 Encounter for screening, unspecified (principal); Z91.048 Other nonmedicinal substance allergy status
CPT/HCPCS: 99282

== ENCOUNTER 2023-03-16 16:39 | Emergency (ER) | payer BC ==
[2023-03-16] MEDS ORDERED: Ketorolac 60 MG/2 ML SDV ONE (17:07)
[2023-03-16 17:11] VITALS: BP 131/86; PULSE 103
[2023-03-16 17:38] LABS: APPEARANCE,URINE CLEAR; BILIRUBIN,URINE NEGATIVE (NEGATIVE); COLOR,URINE YELLOW; GLUCOSE,URINE NEGATIVE (NEGATIVE); KETONES,URINE NEGATIVE (NEGATIVE); LEUKOCYTE ESTERASE,URINE NEGATIVE (NEGATIVE); NITRITE,URINE NEGATIVE (NEGATIVE); OCCULT BLOOD,URINE NEGATIVE (NEGATIVE); PROTEIN,URINE NEGATIVE (NEGATIVE); UROBILINOGEN,URINE 0.2 EU/dL (<2.0)
== END 2023-03-16 17:42 | disposition left against medical advice (07) ==
LOC: MW.ED 16:39
DX: R50.9 Fever, unspecified (principal)
CPT/HCPCS: 81003; 99283; J1885

== ENCOUNTER 2023-03-20 14:42 | Emergency (ER) | payer BC ==
[2023-03-20 16:54] VITALS: BP 119/88; PULSE 92
== END 2023-03-20 16:46 | disposition home or self-care (01) ==
LOC: MW.ED 14:42
DX: M25.522 Pain in left elbow (principal); Z91.048 Other nonmedicinal substance allergy status
CPT/HCPCS: 73080-26-LT; 73080-LT; 99283

== ENCOUNTER 2023-05-27 17:07 | Emergency (ER) | payer BC ==
[2023-05-27 17:21] VITALS: BP 106/64; PULSE 77
[2023-05-27 17:43] LABS: BILIRUBIN,URINE NEGATIVE (NEGATIVE); COLOR,URINE YELLOW; GLUCOSE,URINE NEGATIVE (NEGATIVE); KETONES,URINE NEGATIVE (NEGATIVE); LEUKOCYTE ESTERASE,URINE SMALL (NEGATIVE); NITRITE,URINE POSITIVE (NEGATIVE); OCCULT BLOOD,URINE SMALL (NEGATIVE); PROTEIN,URINE NEGATIVE (NEGATIVE)
[2023-05-27 17:46] LABS: APPEARANCE,URINE HAZY
[2023-05-27 18:00] LABS: BACTERIA,URINE RARE (NEGATIVE); EPITHELIAL CELLS,URINE MODERATE (NONE-FEW); RBC,URINE 0-1 (0-2/HPF); WBC,URINE 0-1 (0-5/HPF)
== END 2023-05-27 18:07 | disposition home or self-care (01) ==
LOC: MW.ED 17:07
DX: N39.0 Urinary tract infection, site not specified (principal); Z91.048 Other nonmedicinal substance allergy status
CPT/HCPCS: 81001; 81025; 99283